=== PATIENT | female | born 1985 | race Caucasian/White ===

== ENCOUNTER 2018-11-01 13:21 | Emergency (ER) | payer OTHER ==
[2018-11-01] MEDS ORDERED: NS 1,000 ML IV ONE ×2 (13:49→14:47)
--- NOTE | 2018-11-01 15:04 | EDPHY ---
H & P Stated Complaint: 16 weeks preg, vaginal spotting started this morning, denies cramps Source: Patient Exam Limitations: No limitations - Personal History LMP (Females 10-55): - Medical/Surgical History Other PMH: migraines, mitral valve prolapse, disautomonia - Family History Significant Family History: No pertinent family hx - Social History Smoking Status: Never smoked Alcohol Use: None Drug Use: None Time Seen by Provider: 11/01/18 13:49 HPI/ROS: This is with history of 1 spontaneous miscarriage presents at 16 weeks IUP with faint vaginal spotting. She is here with her spouse after a [address] from [facility] to [place] to visit family. She denies any other symptoms besides this. She describes the spotting as slight pinkish color. She is accompanied by her spouse. She notes no exacerbating factors for the symptoms. She did have 1 similar episode a weeks that resolved spontaneously without medical intervention. ROS: Constitutional: No fevers or chills HEENT: No coryza or other complaints Neuro: Patient reports a 2/10 frontal headache similar to prior headaches without any other associated symptoms. Pulmonary: No cough shortness of breath Cardiovascular: No heart palpitations or lightheadedness. GI: No lower belly pain/pelvic pain. The no back pain. No other complaints : No dysuria noticed. No flank pain 10 point review of symptoms is performed and otherwise negative with exception of pertinent positives and negatives listed in HPI and ROS (Jarrett Hodges) - Physical Exam Exam: General Appearance: Alert, no distress. Eyes: Pupils equal and round no pallor or injection. ENT, Mouth: Mucous membranes moist. Respiratory: There are no retractions, lungs are clear to auscultation. Cardiovascular: Regular rate and rhythm. Gastrointestinal: Abdomen is soft and nontender, no masses, bowel sounds normal. Neurological: GCS 15. Cranial nerves 2-12 grossly 10 Skin: Warm and dry, no rashes. Musculoskeletal: Neck is supple nontender. Extremities are symmetrical, full range of motion. Psychiatric: Mood and affect normal DIFFERENTIAL DIAGNOSIS: After history and physical exam differential diagnosis was considered for [ ] (Jarrett Hodges) Constitutional: Initial Vital Signs Temperature (C) 37.1 C 11/01/18 13:49 Heart Rate 93 11/01/18 13:49 Respiratory Rate 18 11/01/18 13:49 Blood Pressure 120/75 12/24/18 13:49 O2 Sat (%) 93 11/01/18 13:49 O2 Delivery Mode Room Air Allergies/Adverse Reactions: erythromycin base Allergy (Verified 11/01/18 13:49) Home Medications: Medication Instructions Recorded Bonjesta ER 20-20 mg Tablet 11/01/18 Cephalexin [Keflex (*)] 500 mg PO BID 7 Days #14 cap 11/01/18 11/01/18 Medical Decision Making - Diagnostics Imaging: Discussed imaging studies w/ mail caller Radiologist - Diagnostics Imaging Results: Imaging Impressions Obstetrics Ultrasound 11/01/18 13:51 Impression: 1. Living batista in vertex presentation. Size concordant with dates. The estimated gestational age by biometry is 17 weeks and 0 days yielding an EDC of April 11, 2019. The estimated gestational age by previous dating is 16 weeks. 2. Anterior placenta. No retroplacental hematoma. 3. Limited early second trimester anatomic survey. Recommend full follow-up anatomic survey in 18-20 weeks. Findings discussed with Emergency Department physician, Jarrett Hodges on , 14:20. ED Course/Re-evaluation: IV normal saline bolus x2 L Review of labs reveals 3+ ketones on UA with positive leukocytes-formal urinalysis sent to hospital Quant HCG also symptom Hospital Patient is Rh negative and given spotting warrants RhoGAM. [facility] at 3:00 p.m. With formal urinalysis pending patient is currently in her 2nd L friend dehydration as well (Jarrett Hodges) Other Provider: care turned over to me pending ua, ua with 3+leukocytes and 3+bacteria. pt started on Cephalexin given one dose phenzopyridine in ED pt to go to [facility] ED for Rhogam. (Mai Lincoln) - Data Points Laboratory Results: 11/01/18 11/01/18 11/01/18 14:30 14:05 13:20 Beta HCG, Quant 01981.00 mIU/mL H mIU/mL (0.00-4.83) Urine Color YELLOW Urine Appearance MODERATELY TURBID Urine pH 5.0 (5.0-7.5) Ur Specific [place] 1.027 (1.002-1.030) Urine Protein 1+ H (NEGATIVE) Urine Ketones 1+ H (NEGATIVE) Urine Blood NEGATIVE (NEGATIVE) Urine Nitrate NEGATIVE (NEGATIVE) Urine Bilirubin NEGATIVE (NEGATIVE) Urine Urobilinogen NEGATIVE EU EU (0.2-1.0) Ur Leukocyte Esterase 3+ H (NEGATIVE) Urine RBC 1-3 /hpf /hpf (0-3) Urine WBC 10-15 /hpf H /hpf (0-3) Ur Epithelial Cells 1+ /lpf /lpf (NONE-1+) Calcium Oxalate Crystal PRESENT /hpf /hpf (NONE-1+) Urine Bacteria 3+ /hpf H /hpf (NONE SEEN) Urine Mucus 1+ /lpf /lpf (NONE-1+) Urine Glucose NEGATIVE (NEGATIVE) Patient ABO/Rh Pending Bld Prod Order Rhogam Pending Medications Given: Discontinued Medications Sodium Chloride (Ns) 1,000 mls @ 0 mls/hr IV EDNOW ONE; Wide Open PRN Reason: Protocol Stop: 11/01/18 13:50 Last Admin: 11/01/18 14:19 Dose: 1,000 mls Sodium Chloride (Ns) 1,000 mls @ 0 mls/hr IV ONCE ONE; Wide Open PRN Reason: Protocol Stop: 11/01/18 14:48 Last Admin: 11/01/18 15:01 Dose: 1,000 mls Point of Care Test Results: CBC CBC Collection Date 11/01/18 CBC Collection Time 14:05 WBC 10.5 RBC 4.16 HGB 12.9 HCT 37.6 PLT 289 Neut # 8.0 Neut 76.5 LYMPH # 1.9 LYMPH 17.9 Other WBC # 0.6 Other WBC 5.6 MCV 90.4 Urine Dip Collection Date 11/01/18 Collection Time 14:30 Specific [place] (1.002-1.030) 1.030 PH (5.0-7.5) 6.0 Leukocytes (Negative) 1+ Nitrites (Negative) Negative Protein (Negative) Negative Glucose (Negative) Negative Ketones (Negative) 3+ Urobilnogen (0.2-1.0 EU) 0.2 Bilirubin (Negative) Negative Blood (Negative) Negative Departure - Departure Disposition: Home, Routine, Self-Care Clinical Impression: Threatened miscarriage, Urinary tract infection Condition: Good Referrals: [facility] [Other] - As per Instructions Prescriptions: Cephalexin [Keflex (*)] 500 mg PO BID 7 Days #14 cap
[2018-11-01] MEDS ORDERED: CEPHALEXIN 500MG PREPACK#4 BTL TAKEHOME ONE (16:15)
[2018-11-01] MEDS ORDERED: PHENAZOPYRIDINE HCL 200 MG TAB PO ONE (16:31)
[2018-11-01 17:36] VITALS: BP 117/75
== END 2018-11-01 17:36 | disposition still patient (30) ==
LOC: CED 13:21
DX: O20.0 Threatened abortion (principal); O23.41 Unspecified infection of urinary tract in pregnancy, first trimester; O99.280 Endocrine, nutritional and metabolic diseases complicating pregnancy, unspecified trimester; E86.9 Volume depletion, unspecified; Z3A.16 16 weeks gestation of pregnancy